=== PATIENT | male | born 1995 | race Caucasian/White ===

== ENCOUNTER 2017-09-04 15:05 | Emergency (ER) | payer MEDICAID ==
[~2017-09-04] VITALS: Ht 175.3 cm; Wt 91.0 kg
[~2017-09-04 15:05] MED LIST: DIVAL250 PO
[2017-09-04 15:07] VITALS: BP 145/79
== END 2017-09-04 15:51 | disposition left against medical advice (07) ==
LOC: ER 15:19
DX: R56.9 Unspecified convulsions (principal); R41.0 Disorientation, unspecified
CPT/HCPCS: 99283

== ENCOUNTER 2017-10-08 22:51 | Emergency (ER) | payer MEDICAID ==
[~2017-10-08] VITALS: Ht 180.3 cm; Wt 85.0 kg
[2017-10-09] MEDS ORDERED: DIVALPROEX SODIUM 250MG ER TABLET PO ONE
[2017-10-09 00:15] VITALS: BP 127/80
== END 2017-10-09 00:22 | disposition home or self-care (01) ==
LOC: ER 22:55
DX: G40.409 Other generalized epilepsy and epileptic syndromes, not intractable, without status epilepticus (principal); Z91.14 Patient's other noncompliance with medication regimen; F17.200 Nicotine dependence, unspecified, uncomplicated
CPT/HCPCS: 99283

== ENCOUNTER 2017-12-04 15:39 | Emergency (ER) | payer MEDICAID ==
[~2017-12-04] VITALS: Ht 172.7 cm; Wt 75.0 kg
[2017-12-04 15:42] VITALS: BP 135/75
== END 2017-12-04 17:12 | disposition left against medical advice (07) ==
LOC: ER 15:52
DX: R56.9 Unspecified convulsions (principal)
CPT/HCPCS: 99283

== ENCOUNTER 2018-10-22 15:45 | Emergency (ER) | payer MEDICAID | END 2018-10-22 17:11 | disposition left against medical advice (07) | LOC: ER 15:45 | DX: Z53.21 Procedure and treatment not carried out due to patient leaving prior to being seen by health care provider (principal) ==

== ENCOUNTER 2019-02-06 11:11 | Emergency (ER) | payer MEDICAID ==
[~2019-02-06] VITALS: Ht 172.7 cm; Wt 75.0 kg
[2019-02-06 11:12] VITALS: BP 124/72
[2019-02-06] MEDS ORDERED: SODIUM CHLORIDE 0.9% 1,000 ML IV ONE (11:25)
== END 2019-02-06 11:29 | disposition left against medical advice (07) ==
LOC: ER 11:11
DX: G40.89 Other seizures (principal)
CPT/HCPCS: 99283; J7030